=== PATIENT | male | born 1980 | race Hispanic/Latino ===

== ENCOUNTER 2017-06-17 13:23 | Emergency (ER) | payer BC ==
[2017-06-17] MEDS ORDERED: Adacel (T-DAP) 0.5 ML VIAL ONE (14:22)
== END 2017-06-17 14:28 | disposition home or self-care (01) ==
LOC: ERS 13:23
DX: L03.811 Cellulitis of head [any part, except face] (principal)
CPT/HCPCS: 90471; 90715

== ENCOUNTER 2018-06-17 22:16 | Emergency (ER) | payer BC ==
[2018-06-17] MEDS ORDERED: Ondansetron ODT 4 MG TAB ONE (23:49)
== END 2018-06-18 00:40 | disposition home or self-care (01) ==
LOC: ERS 22:16
DX: K29.70 Gastritis, unspecified, without bleeding (principal); B34.9 Viral infection, unspecified
CPT/HCPCS: 87804; 99283; Q0162

== ENCOUNTER 2019-10-23 13:46 | Emergency (ER) | payer BC, OTHER ==
[2019-10-24 12:21] LABS: SARS-CoV-2 MS2 Positive; SARS-CoV-2 N Gene Positive; SARS-CoV-2 S Gene Positive; SARS-CoV-2 by NAA DETECTED (NotDetected); SARS-CoV-2 orf1ab Positive
== END 2019-10-23 14:10 | disposition home or self-care (01) ==
LOC: ERS 13:46
DX: U07.1 COVID-19 (principal); H65.93 Unspecified nonsuppurative otitis media, bilateral
CPT/HCPCS: 87635; 99283; U0003

== ENCOUNTER 2024-05-01 22:10 | Emergency (ER) | payer BC ==
[2024-05-01] MEDS ORDERED: Ibuprofen 800 MG TAB ONE (22:38)
[2024-05-01] MEDS ORDERED: Dexamethasone 4 MG TAB ONE (23:27)
== END 2024-05-01 22:38 | disposition home or self-care (01) ==
LOC: ERS 22:10
DX: J02.9 Acute pharyngitis, unspecified (principal)
CPT/HCPCS: 87081; 87428; 87430; 99283; J8540